=== PATIENT | male | born 1965 | race Caucasian/White ===

== ENCOUNTER 2019-04-20 19:50 | Emergency (ER) | payer MEDICAID ==
[~2019-04-20] VITALS: Ht 177.8 cm; Wt 82.7 kg
[~2019-04-20 19:50] MED LIST: HYDR28CR14 TOP
[2019-04-20 19:52] VITALS: BP 113/78
[2019-04-20] MEDS ORDERED: PENI500T2 PO (20:24)
[2019-04-20] MEDS ORDERED: TRAM50TA2 PO (20:24)
== END 2019-04-20 20:44 | disposition home or self-care (01) ==
LOC: ER 19:51
DX: K08.89 Other specified disorders of teeth and supporting structures (principal); Z79.899 Other long term (current) drug therapy
CPT/HCPCS: 99283